=== PATIENT | male | born 1985 | race Caucasian/White ===

== ENCOUNTER 2020-01-24 20:27 | Emergency (ER) | payer MEDICAID ==
[~2020-01-24] VITALS: Ht 170.2 cm; Wt 72.0 kg
[2020-01-24] MEDS ORDERED: MORPHINE SULFATE 4 MG/ML CPJ (NOT FOR IM USE) IV STA (21:43)
[2020-01-24] MEDS ORDERED: PROCHLORPERAZINE 10MG/2ML VIAL IV STA (21:43)
[2020-01-24] MEDS ORDERED: SODIUM CHLORIDE 0.9% 1,000 ML IV ONE (21:45)
[2020-01-24] MEDS ORDERED: DIPHENHYDRAMINE 50MG/ML VIAL IV ONE (21:45)
[2020-01-24 23:00] LABS: BASOPHILS % 0.5 % (0.0-2.0); EOSINOPHILS % 3.6 % (0.0-5.0); HEMATOCRIT. 45.8 % (42.0-52.0); HEMOGLOBIN. 15.4 g/dL (14.0-18.0); LYMPHOCYTES % 30.6 % (20.0-50.0); MEAN CORPUSCULAR VOLUME 92.4 fL (80.0-94.0); MEAN PLATELET VOLUME 9.7 fl (7.4-10.4); MONOCYTES % 11.1 % (2.0-8.0); NEUTROPHILS % 54.2 % (40.0-76.0); PLATELET 208 x1000/uL (130-400); RED BLOOD CELL COUNT 4.95 mill/uL (4.7-6.1); RED CELL DISTRIBUTION WIDTH 13.8 % (11.6-14.6)
[2020-01-24 23:08] LABS: CHLORIDE 106 mEq/L (98-107)
[2020-01-24 23:09] LABS: PROTHROMBIN TIME 10.9 sec (9.6-11.0)
[2020-01-25] MEDS ORDERED: AMOXICILLIN/POTASSIUM CLAVULANATE 500/125MG TAB PO ONE (01:00)
[2020-01-25 02:45] VITALS: BP 103/58
== END 2020-01-25 02:46 | disposition home or self-care (01) ==
LOC: EDBD → ER 20:27
DX: R51.9 Headache, unspecified (principal); J01.90 Acute sinusitis, unspecified
CPT/HCPCS: 36415; 70486; 80053; 85025; 85610; 96361; 96374; 96375; 99285; J0780; J1200; J2270; J7030

== ENCOUNTER 2020-01-28 12:17 | Emergency (ER) | payer MEDICAID ==
[~2020-01-28] VITALS: Ht 170.2 cm; Wt 73.0 kg
[2020-01-28 13:20] VITALS: BP 120/78
== END 2020-01-28 13:20 | disposition home or self-care (01) ==
LOC: ER 12:17
DX: R21 Rash and other nonspecific skin eruption (principal)
CPT/HCPCS: 99282